=== PATIENT | male | born 1950 | race Caucasian/White ===

== ENCOUNTER 2022-11-17 08:22 | Outpatient (CLI) | payer OTHER | END 2022-11-17 08:35 | disposition home or self-care (01) | LOC: TOM 08:22 | PROVIDERS: ATTEND Surgery | DX: K40.91 Unilateral inguinal hernia, without obstruction or gangrene, recurrent (principal) ==

== ENCOUNTER 2022-12-13 06:21 | Day surgery (SDC) | payer OTHER ==
[~2022-12-13 06:21] MED LIST: CARVEDILOL25 MG; ELIQUIS5 MG PO; LIPITOR40 M1 PO; METFORMIN HCL500 M3 PO; TAMS0.4C PO; ZEGERID 40 MG1 EACH PO
[2022-12-13] MEDS ORDERED: PERCOCET 5-3251 EACH PO (15:57)
[2022-12-13] MEDS ORDERED: POLY119PG PO (15:58)
[2022-12-13] MEDS ORDERED: NEURONTIN300 MG PO (15:58)
== END 2022-12-13 18:30 | disposition home or self-care (01) ==
LOC: CIR.AMB 06:21
PROVIDERS: ATTEND Surgery
DX: K40.91 Unilateral inguinal hernia, without obstruction or gangrene, recurrent (principal); Z20.822 Contact with and (suspected) exposure to COVID-19; E11.9 Type 2 diabetes mellitus without complications; E78.5 Hyperlipidemia, unspecified; I10 Essential (primary) hypertension
CPT/HCPCS: 49651; C1781